=== PATIENT | female | born 1965 | race Caucasian/White ===

== ENCOUNTER 2023-03-26 12:54 | Outpatient (CLI) | payer BC | END 2023-03-26 12:55 | disposition home or self-care (01) | LOC: BICULT 12:54 | PROVIDERS: ATTEND Internal Medicine Hospice and Palliative Medicine | DX: E04.1 Nontoxic single thyroid nodule (principal) | CPT/HCPCS: 76536; 77063; 77067 ==

== ENCOUNTER 2024-11-23 14:06 | Outpatient (CLI) | payer BC | END 2024-11-23 14:07 | disposition home or self-care (01) | LOC: BICULT 14:06 | PROVIDERS: ATTEND Internal Medicine Hospice and Palliative Medicine | DX: Z12.31 Encounter for screening mammogram for malignant neoplasm of breast (principal); E04.1 Nontoxic single thyroid nodule; Z80.3 Family history of malignant neoplasm of breast | CPT/HCPCS: 76536; 77063; 77067 ==